=== PATIENT | female | born 1995 | race Two or more races ===

== ENCOUNTER 2018-09-08 19:34 | Emergency (ER) | payer BC ==
[~2018-09-08] VITALS: Ht 162.6 cm; Wt 54.4 kg
[2018-09-08] MEDS ORDERED: SODIUM CHLORIDE 0.9% 1,000 ML IVB ONE (19:43)
[2018-09-08] MEDS ORDERED: LORazepam 2MG/ML-1ML VIAL IV ONE (19:45)
[2018-09-08] MEDS ORDERED: LORazepam 2MG/ML-1ML VIAL ONE (19:46)
[2018-09-08 20:40] LABS: Amphetamine Screen, Urine NEGATIVE (NEGATIVE); Barbiturate Scree,Urine NEGATIVE (NEGATIVE); Benzodiazephine Screen, Urine NEGATIVE (NEGATIVE); Cannabinoid Screen, Urine POSITIVE (NEGATIVE); Cocaine Screen, Urine NEGATIVE (NEGATIVE); Opiate Scree,Urine NEGATIVE (NEGATIVE); Phencyclidine Screen, Urine NEGATIVE (NEGATIVE)
[2018-09-08] MEDS ORDERED: SODIUM CHLORIDE 0.9% 1,000 ML IV ONE (22:30)
[2018-09-09] MEDS ORDERED: LORazepam 2MG/ML-1ML VIAL IV ONE (01:15)
[2018-09-09 01:39] VITALS: BP 144/71
== END 2018-09-09 02:20 | disposition home or self-care (01) ==
LOC: ER 19:34 → EDBD 19:34 → ER 09-09 02:20
DX: F10.120 Alcohol abuse with intoxication, uncomplicated (principal); Y90.9 Presence of alcohol in blood, level not specified
CPT/HCPCS: 36415; 80307; 80320; 82962; 94761; 96374; 96376; 99284; J2060; J7030

== ENCOUNTER 2021-02-18 16:45 | Emergency (ER) | payer BC, OTHER ==
[~2021-02-18] VITALS: Ht 152.4 cm; Wt 56.7 kg
[2021-02-18 19:04] LABS: Basophils # (auto) 0.1 10 ^3/uL (0-0.2); Basophils % (auto) 1.1 % (0.0-2.0); Eosinophils # (auto) 0.1 10 ^3/uL (0-0.8); Eosinophils % (auto) 2.2 % (0.0-7.0); Hematocrit 42.1 % (36.0-46.0); Hemoglobin 14.2 g/dL (12.2-16.2); Lymphocytes # (auto) 1.9 10 ^3/uL (0.4-5.4); Lymphocytes % (auto) 32.6 % (10.0-50.0); Mean Corpuscular Hemoglobin 31.3 pg (28.0-32.0); Mean Corpuscular Hgb Conc. 33.8 g/dL (32.0-36.0); Mean Corpuscular Volume 92.6 fL (80.0-100.0); Monocytes # (auto) 0.3 10 ^3/uL (0-1.3); Monocytes % (auto) 4.4 % (0.0-12.0); Neutrophils # (auto) 3.6 10 ^3/uL (1.6-8.6); Neutrophils % (auto) 59.7 % (37.0-80.0); Nucleated Red Blood Cells % 0.1 %; Red Blood Cells 4.55 10^6/uL (4.0-5.20); Red Cell Distribution Width 13.4 % (11.8-14.3)
[2021-02-18 19:19] LABS: Albumin 4.3 g/dL (3.4-5.0); Calcium 8.4 mg/dL (8.5-10.1); Magnesium 2.9 mg/dL (1.6-2.6); Potassium 3.8 mmol/L (3.5-5.1)
[2021-02-18 19:24] LABS: BUN/Creatinine Ratio 18.8; Bilirubin, Total 0.2 mg/dL (0.2-1.0); Total Protein 7.5 g/dL (6.4-8.2)
[2021-02-18] MEDS ORDERED: FOLIC ACID 1 MG, MULTIPLE VITAMIN 10 ML, MAGNESIUM SULF SDV 50% 8 MEQ, THIAMINE INJ 100... INJ ONE ×5 (20:00)
[2021-02-18] MEDS ORDERED: THIAMINE 100mg/ml INJ (200mg/2ml VIAL) IV ONE (20:00)
[2021-02-18] MEDS ORDERED: SODIUM CHLORIDE 0.9% 1,000 ML IV ONE (20:00)
[2021-02-18 21:25] LABS: Salicylate < 1.7 mg/dL (2.8-20.0)
[2021-02-18 21:26] LABS: Acetaminophen < 2.0 ug/mL (10-30)
[2021-02-18 21:34] LABS: Urine Amorphous Crystal FEW /hpf (None Seen); Urine Bacteria FEW /hpf (None Seen); Urine Blood Negative /uL (Negative); Urine Specific Gravity 1.009 (1.001-1.035); Urine WBC 1 /hpf (0 - 5)
[2021-02-18 21:47] LABS: Amphetamine Screen, Urine NEGATIVE (NEGATIVE); Barbiturate Scree,Urine NEGATIVE (NEGATIVE); Benzodiazephine Screen, Urine NEGATIVE (NEGATIVE); Cannabinoid Screen, Urine POSITIVE (NEGATIVE); Cocaine Screen, Urine NEGATIVE (NEGATIVE); Opiate Scree,Urine NEGATIVE (NEGATIVE); Phencyclidine Screen, Urine NEGATIVE (NEGATIVE)
[2021-02-18 22:50] VITALS: BP 105/47
== END 2021-02-19 06:25 | disposition home or self-care (01) ==
LOC: ER 16:45 → EDBD 16:45 → ER 02-19 06:22
DX: F10.129 Alcohol abuse with intoxication, unspecified (principal); F32.9 Major depressive disorder, single episode, unspecified; F41.9 Anxiety disorder, unspecified; Z59.0 Homelessness; Z20.822 Contact with and (suspected) exposure to COVID-19; Y90.8 Blood alcohol level of 240 mg/100 ml or more
CPT/HCPCS: 36415; 80053; 80307; 80320; 80329; 81001; 83735; 84702; 85025; 87426; 96361; 96365; 96366; 96375; 99284; J3411; J3475; J7030

== ENCOUNTER 2021-03-22 16:47 | Emergency (ER) | payer OTHER ==
[~2021-03-22] VITALS: Ht 162.6 cm; Wt 56.7 kg
[2021-03-22 16:49] VITALS: BP 122/59
== END 2021-03-22 22:14 | disposition left against medical advice (07) ==
LOC: ER 16:47
DX: M25.571 Pain in right ankle and joints of right foot (principal); M79.671 Pain in right foot; Z53.21 Procedure and treatment not carried out due to patient leaving prior to being seen by health care provider
CPT/HCPCS: 73610; 73630